=== PATIENT | female | born 1995 | race Caucasian/White ===

== ENCOUNTER → 2022-04-12 14:38 | Outpatient (CLI) | payer OTHER, SELFPAY ==
--- NOTE | ~2022-04-12 | US_ITS ---
US breast LT complete 04/12/2022 15:27 Indication: Palpable left breast lump. Procedure: High-resolution complete left breast ultrasound including all 4 quadrants and the subareol ar location. Comparison: No prior studies for comparison. Findings: In the area of palpable concern there is a complicated cyst with internal septation and low -level internal echoes measuring 8 x 9 x 4 mm. No significant posterior features or internal vascular ity. No other discrete masses are identified. Impression: 1: Probable benign complicated 9 mm cyst of the left breast at 12:00 near the areola in the area of p alpable concern. BI-RADS CATEGORY 3-PROBABLY BENIGN FINDING RECOMMENDATION: Six-month follow-up recommended left breast ultrasound recommended. Reviewed, dictated and finalized at location [facility]. Impression: 1: Probable benign complicated 9 mm cyst of the left breast at 12:00 near the a reola in the area of palpable concern. BI-RADS CATEGORY 3-PROBABLY BENIGN FINDING RECOMMENDATION: Six-month follow-up recommended left breast ultrasound recommen ded.
== END ==
PROVIDERS: PCP Nurse Practitioner; Visit Provider Nurse Practitioner
DX: N63.20 Unspecified lump in the left breast, unspecified quadrant (principal); R92.8 Other abnormal and inconclusive findings on diagnostic imaging of breast
CPT/HCPCS: 76641

== ENCOUNTER → 2022-10-14 09:44 | Outpatient (CLI) | payer OTHER, SELFPAY ==
--- NOTE | ~2022-10-14 | US_ITS ---
US breast LT limited DATE: 10/14/2022 09:57 INDICATION: Patient had a palpable left breast lump on 04/12/2022 but doesn't feel this anymore. Probable benign complicated 9 mm cyst of left breast at 12:00 near the areolar area was reported on left complete breast ultrasound examination TECHNIQUE: Targeted left breast ultrasound at 12:00 areolar area was ordered. COMPARISON: 04/12/2022 left breast ultrasound FINDINGS: No suspicious mass, cyst or suspicious shadowing is detected. At 12:00 subareolar area. IMPRESSION: BI-RADS Category 1: Negative Reviewed, dictated and finalized at [facility]. Reviewed, dictated and finalized at location A. NO FLOOR RUNNER
== END ==
PROVIDERS: PCP Nurse Practitioner; Visit Provider Nurse Practitioner
DX: R92.8 Other abnormal and inconclusive findings on diagnostic imaging of breast (principal)
CPT/HCPCS: 76642